=== PATIENT | female | born 2000 | race Caucasian/White ===

== ENCOUNTER 2025-06-08 23:52 | Emergency (ER) | payer OTHER ==
[2025-06-09] VITALS: TEMP 98
--- NOTE | 2025-06-09 00:57 | ED ---
General Adult HPI - General Chief complaint: Abdominal Pain Stated complaint: Cramping Time Seen by Provider: 06/09/25 00:08 Source: patient Mode of arrival: ambulatory Limitations: no limitations - History of Present Illness Initial comments: Patient is a 25-year-old female, no significant past medical she presenting today for lower abdominal cramping. Patient recently had a positive test on Tuesday. States that she was in [place] in April which is when she estimates she did get . She has not had a menstrual period since the of her son 2 years ago. Last was high risk due to fetus's congenital heart defect. Patient presents today due to lower abdominal cramping, states has been ongoing all day, worse with ambulation and activity. She denies vaginal bleeding or vaginal discharge. Denies dysuria, hematuria or urinary frequency. Denies fevers or chills. Denies shortness of breath or chest pain. No pain medications prior to arrival. States she has had some nausea and vomiting during this , emesis NBNB. Endorses fatigue. Has not yet been able to see an OB/ no ultrasound yet confirming intrauterine . - Related Data Previous Rx's Medication Instructions Recorded Pnv,Calcium 72/Iron/Folic Acid 1 each PO DAILY 30 Days #30 tablet 06/09/25 [Westab Plus Tablet] Allergies Allergy/AdvReac Type Severity Reaction Status Date / Time metoclopramide [From Reglan] Allergy Hallucinati Verified 06/08/25 23:54 ons Review of Systems ROS Statement: Those systems with pertinent positive or pertinent negative responses have been documented in the HPI. ROS Other: All systems not noted in ROS Statement are negative. Past Medical History Past Medical History: No Reported History History of Any Multi-Drug Resistant Organisms: None Reported Past Surgical History: No Surgical Hx Reported Past Psychological History: Anxiety, Depression Smoking Status: Vaper Past Alcohol Use History: None Reported Past Drug Use History: None Reported General Exam - General Exam Comments Initial Comments: PE: CONSTITUTIONAL: No apparent distress, well appearing SKIN: Warm, dry, no jaundice, hives or petechiae EYES: Pupils are equally round, extraocular movements intact without nystagmus, clear conjunctiva, non-icteric sclera HENT: Normocephalic, atraumatic, moist mucus membranes NECK: , Full range of motion, normal appearance PULMONARY: Clear to auscultation without wheezes, rhonchi, or rales, normal excursion, no accessory muscle use and no stridor CARDIOVASCULAR: Regular rate, rhythm, normal S1 and S2. No appreciated murmurs, rubs or gallops. Strong radial pulses with intact distal perfusion. No lower extremity edema GASTROINTESTINAL: Soft, active bowel sounds throughout, non-tender, non- distended, no palpable masses, no rebound or guarding. No hepatosplenomegaly GENITOURINARY: MUSCULOSKELETAL: Extremities have no gross deformity, no edema, redness, or swelling. NEUROLOGIC:_a/o x 3, GCS 15, normal mentation and speech. Moves all extremities x 4 without motor or sensory deficit PSYCHIATRIC:_normal mood and affect, thought process is clear and linear Limitations: no limitations Course Vital Signs 06/08/25 06/09/25 23:55 03:43 Temperature 98.0 F 98.0 F Pulse Rate 62 60 Respiratory 16 17 Rate Blood Pressure 120/80 114/85 O2 Sat by Pulse 100 99 Oximetry Medical Decision Making - Medical Decision Making Differential Diagnosis (chest pain, altered mental status, abdominal pain women, abdominal pain men, vaginal bleeding, weakness, fever, dyspnea, syncope, headache, dizziness, GI bleed, back pain, seizure, CVA, palpatations, mental health, musculoskeletal)? @ Differential diagnosis remains broad however to considerations include intrauterine , ectopic , molar , spontaneous , septic , UTI, ureterolithasis, gastroenteritis, appendicitis, colitis, this is not an all inclusive list EKG interpreted by me (3pts min.). @ -As above X-rays interpreted by me (1pt min.). @ -None done CT interpreted by me (1pt min.). @ -None done U/S interpreted by me (1pt. min.). @ -[US reviewed- showed single live intrauterine , radiologist notes subchorionic hemorrhage, agree with radiologist interpretation What testing was considered but not performed or refused? (CT, X-rays, U/S, labs)? Why? @ -None What meds were considered but not given or refused? Why? @ -None Did you discuss the management of the patient with other professionals (professionals i.e. , PA, SQL DATA ARCHITECT, lab, RT, psych nurse, transition social worker, mining plant operator, teacher, intelligence officer, bilingual patient support caseworker)? Give summary @ -No Was smoking cessation discussed for >3mins.? @ -No Was critical care preformed (if so, how long)? @ -No Were there social determinants of health that impacted care today? How? (Homelessness, low income, unemployed, alcoholism, drug addiction, transportation, low edu. Level, literacy, decrease access to med. care, group home, rehab)? @ -No Was there de-escalation of care discussed even if they declined (Discuss DNR or withdrawal of care, Hospice)? @ -No What co-morbidities impacted this encounter? (DM, HTN, Smoking, COPD, CAD, Cancer, CVA, ARF, Chemo, Hep., AIDS, mental health diagnosis, sleep apnea, morbid obesity)? @ -None Was patient admitted / discharged? Hospital course, mention meds given and route, prescriptions, significant lab abnormalities, going to OR and other pertinent info. @ -Discharged- Patient was initially seen and assessed in the waiting room due to bed shortage in the ER. I did obtain patient's permission to perform her assessment in the waiting room to which she was agreeable. She is a 25-year-old female G2, P1 presenting today for lower abdominal cramping in early . Vital signs are stable on arrival. She is afebrile. Will obtain transvaginal ultrasound, hCG as well as urinalysis and comprehensive labs. Patient was offered pain control however politely declined. Patient positive. hCG 75,000. Ultrasound significant for subchorionic hemorrhage. Updated patient findings she is requesting for discharge prior to providing urinalysis. Denies UTI symptoms. I discussed with patient the importance of pelvic rest, until she is able to follow-up with her OB. She has an appointment scheduled for 06/20/2025. Patient comfortable and agreeable with POC. In my medical judgment there is currently no evidence of an immediate life- threatening or surgical condition. Discharge is therefore indicated at this time. Discharge treatment instructions, follow up instructions, and appropriate emergency department return precautions were discussed with the patient and/or medical decision maker. Patient and/or medical decision maker expressed understanding of and agreed with the treatment plan, follow up instructions, and emergency department return precaution. All patient's and/or medical decision maker's questions were answered. The patient was instructed to return to the ED for any changes in symptoms, persistent symptoms, inability to obtain proper follow-up or for any further concerns. Patient received verbal and written instructions for this condition. Undiagnosed new problem with uncertain prognosis? @ -No Drug Therapy requiring intensive monitoring for toxicity (Heparin, Nitro, Insulin, Cardizem)? @ -No Were any procedures done? @ -No Diagnosis/symptom? @Subchorionic hemorrhage Acute, or Chronic, or Acute on Chronic? Acute Uncomplicated (without systemic symptoms) or Complicated (systemic symptoms)? Complicated Side effects of treatment? @ -No Exacerbation, Progression, or Severe Exacerbation? @ -No Poses a threat to life or bodily function? How? (Chest pain, [place], [place], pneumonia, PE, COPD, DKA, ARF, appy, cholecystitis, CVA, Diverticulitis, Homicidal, Suicidal, threat to staff... and all critical care pts) @ -No - Lab Data Result diagrams: 06/09/25 01:18 06/09/25 01:18 Lab Results 06/09/25 06/09/25 06/09/25 Range/Units 01:10 01:18 01:18 WBC 13.37 H (4.50-10.00) 10*3/uL RBC 4.23 (4.10-5.20) 10*6/uL Hgb 13.5 (12.0-15.0) g/dL Hct 38.9 (37.2-46.3) % MCV 92.0 (80.0-97.0) fL MCH 31.9 (27.0-32.0) pg MCHC 34.7 (32.0-37.0) g/dL Plt Count 292 (140-440) 10*3/uL MPV 9.9 (9.5-12.2) fL Immature Gran % (Auto) 0.4 % Neutrophils % 61.8 % Lymphocytes % 28.2 % Monocytes % 7.7 % Eosinophils % 1.6 % Basophils % 0.3 % Immature Gran # 0.06 H (0.00-0.04) 10*3/uL Neutrophils # 8.25 H (1.80-7.70) 10*3/uL Lymphocytes # 3.77 (0.90-5.00) 10*3/uL Monocytes # 1.03 H (0.20-1.00) 10*3/uL Eosinophils # 0.22 (0.04-0.35) 10*3/uL Basophils # 0.04 (0.00-0.10) 10*3/uL PT 10.4 (10.0-12.5) sec INR 0.9 (<1.2) APTT 24.9 (22.0-30.0) sec Sodium (137-145) mmol/L Potassium (3.5-5.1) mmol/L Chloride (98-107) mmol/L Carbon Dioxide (22-30) mmol/L Anion Gap mmol/L BUN (7-17) mg/dL Creatinine (0.52-1.04) mg/dL Est GFR (CKD-EPI)AfAm (>60 ml/min/1.73 sqM) Est GFR (CKD-EPI)NonAf (>60 ml/min/1.73 sqM) Glucose (74-99) mg/dL Calcium (8.4-10.2) mg/dL Total Bilirubin (0.2-1.3) mg/dL AST (14-36) U/L ALT (4-34) U/L Alkaline Phosphatase (38-126) U/L Total Protein (6.3-8.2) g/dL Albumin (3.5-5.0) g/dL HCG, Quant mIU/mL Blood Type A Positive Blood Type Confirm Blood Type Recheck No Previous Record Bld Type Recheck Status CABO Indicated Antibody Screen NEGATIVE Spec Expiration Date 06/12/2025 - 230906/09/25 06/09/25 Range/Units 01:18 01:38 WBC (4.50-10.00) 10*3/uL RBC (4.10-5.20) 10*6/uL Hgb (12.0-15.0) g/dL Hct (37.2-46.3) % MCV (80.0-97.0) fL MCH (27.0-32.0) pg MCHC (32.0-37.0) g/dL Plt Count (140-440) 10*3/uL MPV (9.5-12.2) fL Immature Gran % (Auto) % Neutrophils % % Lymphocytes % % Monocytes % % Eosinophils % % Basophils % % Immature Gran # (0.00-0.04) 10*3/uL Neutrophils # (1.80-7.70) 10*3/uL Lymphocytes # (0.90-5.00) 10*3/uL Monocytes # (0.20-1.00) 10*3/uL Eosinophils # (0.04-0.35) 10*3/uL Basophils # (0.00-0.10) 10*3/uL PT (10.0-12.5) sec INR (<1.2) APTT (22.0-30.0) sec Sodium 136 L (137-145) mmol/L Potassium 3.9 (3.5-5.1) mmol/L Chloride 101 (98-107) mmol/L Carbon Dioxide 23 (22-30) mmol/L Anion Gap 12 mmol/L BUN 13 (7-17) mg/dL Creatinine 0.47 L (0.52-1.04) mg/dL Est GFR (CKD-EPI)AfAm >90 (>60 ml/min/1.73 sqM) Est GFR (CKD-EPI)NonAf >90 (>60 ml/min/1.73 sqM) Glucose 90 (74-99) mg/dL Calcium 9.6 (8.4-10.2) mg/dL Total Bilirubin 0.4 (0.2-1.3) mg/dL AST 25 (14-36) U/L ALT 13 (4-34) U/L Alkaline Phosphatase 81 (38-126) U/L Total Protein 7.1 (6.3-8.2) g/dL Albumin 4.5 (3.5-5.0) g/dL HCG, Quant 25581.2 mIU/mL Blood Type Blood Type Confirm A Positive Blood Type Recheck Bld Type Recheck Status Antibody Screen Spec Expiration Date Disposition Clinical Impression: Subchorionic hematoma in first trimester Disposition: HOME SELF-CARE Condition: Good Instructions (If sedation given, give patient instructions): Subchorionic Hemorrhage (ED) Additional Instructions: Every disease is a spectrum and a small chance still exists that a serious condition could develop, for this reason, please monitor yourself closely for new, changing or worsening symptoms, symptoms that persist beyond 48 hours, uncontrolled pain, vaginal bleeding, especially vaginal bleeding to the point of leading through 1 pad an hour for greater than 2 hours, foul-smelling vaginal discharge, fever, inability to tolerate/keep down fluids or your medications, inability to follow up with outpatient providers as instructed and should you experience these symptoms or should you have any further concerns for your wellbeing please return to the ED or call 911 immediately. Please follow-up with your wire machine cutter as scheduled. Please take a vitamin daily. Remain on pelvic rest meaning no vaginal intercourse, no inserting any objects into the vagina until you follow-up with your wire machine cutter. PLEASE call your primary care physician as soon as possible to arrange / discuss plan for followup appointment. Appointment in the next 1-3 days is strongly encouraged if possible. PLEASE let us know here before you leave if there is anything further we can do to be of any assistance. Take care and feel Better! Prescriptions: Pnv,Calcium 72/Iron/Folic Acid [Westab Plus Tablet] 1 each PO DAILY 30 Days #30 tablet Is patient prescribed a controlled substance at d/c from ED?: No Referrals: None,Stated [Primary Care Provider] - 1-2 days
[2025-06-09] MEDS: SODIUM CHLORIDE 0.9% 1,000 ML IV ONE (01:29)
[2025-06-09 01:54] LABS: Basophils # (A) 0.04 10*3/uL (0.00-0.10); Basophils % (A) 0.3 %; Eosinophils # (A) 0.22 10*3/uL (0.04-0.35); Eosinophils % (A) 1.6 %; HCT 38.9 % (37.2-46.3); HGB 13.5 g/dL (12.0-15.0); Lymphocytes # (A) 3.77 10*3/uL (0.90-5.00); Lymphocytes % (A) 28.2 %; MCH 31.9 pg (27.0-32.0); MCHC 34.7 g/dL (32.0-37.0); MCV 92.0 fL (80.0-97.0); Monocytes # (A) 1.03 10*3/uL (0.20-1.00); Monocytes % (A) 7.7 %; Neutrophils # (A) 8.25 10*3/uL (1.80-7.70); Neutrophils % (A) 61.8 %; Platelet Count 292 10*3/uL (140-440); RBC 4.23 10*6/uL (4.10-5.20); RDW 12.3 % (11.5-14.5); WBC 13.37 10*3/uL (4.50-10.00)
[2025-06-09 02:05] LABS: INR 0.9 (<1.2); Partial Thromboplastin Time 24.9 sec (22.0-30.0); Prothrombin Time 10.4 sec (10.0-12.5)
[2025-06-09 02:15] LABS: ALT 13 U/L (4-34); AST 25 U/L (14-36); African American GFR (CKD) >90 (>60 ml/min/1.73 sqM); Albumin 4.5 g/dL (3.5-5.0); Alkaline Phosphatase 81 U/L (38-126); Anion Gap 12 mmol/L; Blood Urea Nitrogen 13 mg/dL (7-17); Calcium 9.6 mg/dL (8.4-10.2); Carbon Dioxide 23 mmol/L (22-30); Chloride 101 mmol/L (98-107); Glucose 90 mg/dL (74-99); Non-African American GFR(CKD) >90 (>60 ml/min/1.73 sqM); Potassium 3.9 mmol/L (3.5-5.1); Sodium 136 mmol/L (137-145); Total Protein 7.1 g/dL (6.3-8.2)
--- NOTE | 2025-06-09 03:06 | US ---
EXAM: US , Transvaginal CLINICAL HISTORY: US Reason: abd cramping TECHNIQUE: Real-time transvaginal obstetrical ultrasound of the maternal pelvis and a first trimester with image documentation. Transvaginal imaging was used for better evaluation of the fetus and adnexa. COMPARISON: No relevant prior studies available. FINDINGS: Gestation: There is a single intrauterine gestational sac. pole crown-rump length measures 0.81 cm consistent with 6 weeks 6 days gestation. There is a yolk sac measuring 3 mm. Anatomy: The estimated date delivery is 01/27/2026. Placenta/amniotic fluid: There is a 0.7 x 0.2 x 0.5 cm subchorionic hemorrhage to the right side of the gestational sac. Uterus/cervix: The uterus measures 13.5 x 5.2 x 7.8 cm, 287 mL. No myometrial mass. Ovaries: The right ovary measures 1.8 x 1.8 x 1.4 cm. The left ovary measures 2.2 x 2.2 x 2.7 cm. There is a 1.9 cm corpus luteum cyst in the right ovary. There is a trace amount of free fluid in the right adnexa. No mass. Free fluid: No free fluid is seen within the cul-de-sac or adnexa. IMPRESSION: 1. There is a 0.7 x 0.2 x 0.5 cm subchorionic hemorrhage to the right side of the gestational sac. 2. Single, live intrauterine fetus. pole crown-rump length measures 0.81 cm consistent with 6 weeks 6 days gestation. 3. The estimated date delivery is 01/27/2026.
[2025-06-09 03:23] LABS: HCG,Quantitative Serum 75252.2 mIU/mL
[2025-06-09 03:44] VITALS: BP 114/85; PULSE 60; RESP 17
== END 2025-06-09 04:02 | disposition home or self-care (01) ==
LOC: EC 23:52
DX: O20.8 Other hemorrhage in early pregnancy (principal); O99.331 Smoking (tobacco) complicating pregnancy, first trimester; F17.290 Nicotine dependence, other tobacco product, uncomplicated; Z88.8 Allergy status to other drugs, medicaments and biological substances; Z3A.00 Weeks of gestation of pregnancy not specified
CPT/HCPCS: 36415; 76801; 76817; 80053; 84702; 85025; 85610; 85730; 86850; 86900; 86901; 96360; 99284